=== PATIENT | female | born 1955 | race Caucasian/White ===

== ENCOUNTER → 2022-05-27 11:53 | Outpatient (CLI) | payer MEDICARE, SELFPAY ==
[2022-05-27 12:47] LABS: Add Manual Diff / Slide Review NO; Basophils Absolute Auto 100 /uL (0-100); Basophils Percent Auto 1.3 % (0-2); Eosinophils Absolute Auto 100 /uL (0-450); Eosinophils Percent Auto 2.3 % (2-4); Hematocrit 43.4 % (36-46); Hemoglobin 14.5 g/dL (12.0-16.0); Lymphocytes Absolute Auto 1600 /uL (1100-4500); Lymphocytes Percent Auto 33.2 % (25-40); Mean Corpuscular HGB Conc 33.3 % (30-36); Mean Corpuscular Hemoglobin 28.4 PG (26-34); Mean Corpuscular Volume 85.3 fL (80-100); Monocytes Absolute Auto 300 /uL (0-900); Monocytes Percent Auto 5.5 % (3-14); Neutrophils Absolute Auto 2700 /uL (1500-7000); Neutrophils Percent Auto 57.7 % (50-75); Platelet Count 196 X10^3/uL (150-400); Red Blood Cell Count 5.09 X10^6/uL (4.0-5.2); Red Cell Distribution Width 13.1 % (11.6-14.8); White Blood Cell Count 4.8 X10^3/uL (4.5-11.0)
[2022-05-27 13:10] LABS: BUN Creatinine Ratio 13.6 (6-22); Blood Urea Nitrogen 8 mg/dL (7-17); Calcium 9.2 mg/dL (8.4-10.2); Carbon Dioxide 24 mmol/L (22-32); Chloride 100 mmol/L (98-107); Estimated Glomerular Filt Rate > 60 mL/min (>60); Glucose 199 mg/dL (80-110); HEMOLYSIS < 15 (0-50); Potassium 4.3 mmol/L (3.4-5.1); Sodium 137 mmol/L (137-145)
== END ==
PROVIDERS: Referring Provider Orthopaedic Surgery Orthopaedic Surgery of the Spine; Visit Provider Orthopaedic Surgery Orthopaedic Surgery of the Spine
DX: Z01.818 Encounter for other preprocedural examination (principal); Z01.812 Encounter for preprocedural laboratory examination
CPT/HCPCS: 36415; 80048; 85025; 93005

== ENCOUNTER → 2022-06-14 12:05 | Outpatient (CLI) | payer MEDICARE, SELFPAY ==
[2022-06-14 13:19] LABS: COVID19 -Nasal RAPID Negative (Negative)
== END ==
PROVIDERS: PCP Family Medicine; Referring Provider Orthopaedic Surgery Orthopaedic Surgery of the Spine; Visit Provider Orthopaedic Surgery Orthopaedic Surgery of the Spine
DX: Z20.822 Contact with and (suspected) exposure to COVID-19 (principal)
CPT/HCPCS: 87635; C9803

== ENCOUNTER 2022-06-17 10:31 | Inpatient (IN) | payer MEDICARE, SELFPAY ==
[2022-06-05 14:53] VITALS: BMI 38.9
[2022-06-17] VITALS (12 sets, daily range): BP systolic 120–148; BP diastolic 45–79; PULSE 60–90; RESP 15–98; TEMP 36.2–36.6; O2SAT 94–100; BMI 38.9; BMI 38.4
[2022-06-17] MEDS: LACTATED RINGERS 1,000 ML 42 ML IV ×3 (11:35→15:06)
[2022-06-17] MEDS: CEFAZOLIN 2 GM/100 ML PREMIX 100 ML IV ×2 (12:55→20:13)
--- NOTE | 2022-06-17 13:15 | SUR.OPER ---
Prone on spine table, head in foam head support, padded chest and pelvic supports, gel pad at knees, lower legs supported by pillows; nipples, genitalia and toes free of pressure, arms secured on foam padded arm boards at <90 degrees abduction. Tape over blanket at thigh secured to table. Pt positioned per direction and supervision of Dr Donnelly.
[2022-06-17] MEDS: BUPIVACAINE LIPOSOME 266 MG/20 ML VIAL INJ (13:19)
[2022-06-17] MEDS: BUPIVACAINE 0.5% W/ EPI (PF) 30 ML VIAL INJ (13:20)
--- NOTE | 2022-06-17 15:13 | DI.RAD.S_ITS ---
PROCEDURE: XR LUMBAR SPINE 2-3V INDICATIONS: L4-L5 TLIF TECHNIQUE: 2 views of the lumbar spine were acquired. COMPARISON: [facility] Outside Film, CR, XR LUMBAR SPINE 2 OR 3 VIEWS, 12/19/2021, 13:19. [facility] Outside Film, MR, MR LUMBAR SPINE WITHOUT CONTRAST, 01/09/2022, 11:22. FINDINGS: Spot fluoroscopic images demonstrate changes from posterior spinal fixation with bilateral pedicle screws and interbody rods and a disc spacer. Postsurgical changes appear to be the L4-5 level as labeled clinically, although surrounding bony landmarks are not well visualized due to limited field of view. IMPRESSION: Postsurgical changes from posterior spinal fusion presumably at the L4-5 disc space level. Approved by: Taurus José M.D. on 06/17/2022 at 15:35
--- NOTE | 2022-06-17 15:18 | PM.OP.1 ---
Operative Date/Time/Diagnoses Date of procedure: 06/17/22 Time of procedure: 13:00 Pre-op diagnosis: 1. L4-5 spondylolisthesis 2. L4-5 spinal stenosis with radiculopathy Post-op diagnosis: same Procedure & Clinicians Procedure: 1. L4-5 Postero-lateral and posterior interbody fusion 2. L4-5 interbody cage placement. 3. L4-5 decompressive laminectomy with bilateral facetecomies 4. L4-5 Posterior non-segmental instrumentation 5. [place] of bone marrow from iliac crest 6. Utilization of microsurgical technique and operating microscope Same procedure as scheduled: Yes Indications: Patient has been having chronic back pain and worsening lumbar radiculopathy. Patient failed multiple conservative management with worsening pain weakness and numbness in her lower extremity. Patient has been having difficulty performing activity of daily living. After discussing risks benefits of treatment options, patient elected proceed with surgery. Surgeon: Celine Donnelly Electrical Controls Engineer: Marquis Awad Click Yes if Unassisted: No Anesthesia Type: General Operative Notes Closure Type: primary Specimen(s): none sent Prosthetic devices, grafts, tissues, transplants, or devices: Globus revolve screws, Rise cage Estimated Blood Loss (mL): 50 Blood products transfused: none Procedure in detail: Patient was seen in the preoperative area. Risks and benefits of the surgery was discussed with the patient. Informed consent was obtained from the patient and placed in the chart. Surgical site was marked. Patient was taken to the operative room. General anesthesia was administered. Prophylactic antibiotic was given to the patient less than 30 min before the incision was made. Patient was placed into a prone position on the Farshad table. Patient's back was then prepped and draped in the sterile fashion. Time-out was performed at this time. Using AP and lateral C-arm imaging the interval between the L4-5 was identified and marked on patient's back. A 2 inch incision 2 in from midline was made on the left side first. The fascia was incised in line with skin incision. Globus MARS retractors was placed inside the incision and docked onto the L4 lamina. Using microsurgical technique and operating microscope, a L4 laminectomy and L4-5 facetectomy was performed using a Kerrison rongeur. The disc space at L4-5 was identified. And a total diskectomy was performed at L4-5 level. The endplates were decorticated using a rasp and shaver. The total diskectomy and decortication was performed at L4-5 level in order to to accomplish a L4-5 fusion. The local bone from the laminectomy and facetectomy was saved for local bone grafting. After the total diskectomy and decortication was completed, Trifecta bone graft material was combined with local bone that was harvested earlier. At this time, a separate skin is incision was made over the iliac crest. A Jamshidi needle was inserted into the iliac crest through a separate skin incision. 5 cc of bone marrow aspiration was obtained through the separate skin incision using a Jamshidi needle from the iliac crest. The bone marrow aspiration was combined with local bone and the Trifecta bone grafting material. The bone grafting material was placed into the L4-5 interbody space along with a expandable cage. The cage was expanded to its maximum height using the torque limiting screwdriver. At this time a mirror image incision was made on the right side. The fascia was incised in line with the skin incision. Globus MARS retractor was inserted and docked onto the L4-5 posterolateral gutter. Using the power drill, posterior-lateral decortication was performed at L4-5 level until bleeding cortical bone was identified. The remaining bone grafting material was placed into the L4-5 posterior lateral gutter he order to accomplish posterolateral fusion at the L4-5 level. Using the double C-arm technique, pedicle screws were placed into the L4-5 pedicles bilaterally. This was done by placing the Jamshidi needle into the pedicles, then placing the guidewires over the Jamshidi needle, and finally placing the cannulated screws over the guidewires bilaterally. After the pedicle screws were placed, 2 titanium rods was locked into the heads of the pedicle screws using locking caps and torque limiting screwdriver. Threaded reducers were used to reduce the patient's spondylolisthesis at L4-5 level. Anatomic reduction was accomplished and maintained using the hardware placed. After all the hardware was placed, and confirmed with AP and lateral C-arm imaging, the wound was then irrigated with sterile normal saline and packed with Ray-Karsten gauze for 3 min to accomplish hemostasis. After the gauze was removed the deep fascia was closed with #1 Vicryl suture. The subcutaneous layer was closed with 2-0 Vicryl. The skin was closed with skin carrie. Patient tolerated the procedure well. There were no complications. Complications: none Post-operative Condition: stable Disposition: PACU Plan for aftercare: Admit to inpatient hospital
[2022-06-17] MEDS: fentaNYL 100 MCG/2 ML INJ IV (15:51)
[2022-06-17] MEDS: hydrOXYzine pamoate 25 MG CAPSULE PO (15:54)
[2022-06-17] MEDS: CODEINE/ACETAMINOPHEN 30/300 TABLET 1 TAB PO (16:08)
[2022-06-17] MEDS: SODIUM CHLORIDE 0.9% 1,000 ML 100 ML IV (16:58)
[2022-06-17] MEDS: ONDANSETRON 4 MG/2 ML INJ IV ×2 (17:01→21:16)
[2022-06-17] MEDS: HYDROMORPHONE 0.5 MG INJ IV (17:14)
[2022-06-17] MEDS: MAG HYDROX/ALUM/SIMETH 30 ML UDC PO (20:11)
[2022-06-17] MEDS: METFORMIN HCL 500 MG TABLET 1000 MG PO (20:12)
[2022-06-17] MEDS: ACETAMINOPHEN 325 MG TABLET 650 MG PO (20:12)
[2022-06-17] MEDS: dilTIAZem CD 240 MG CAP PO (20:16)
[2022-06-18] MEDS: HYDROMORPHONE 0.5 MG INJ IV ×2 (00:11→03:20)
[2022-06-18 02:22] VITALS: BP 144/68; PULSE 101; RESP 18; TEMP 36.8; O2SAT 97
[2022-06-18 03:19] VITALS: TEMP 37.7
[2022-06-18] MEDS: ACETAMINOPHEN 325 MG TABLET 650 MG PO ×3 (03:19→12:38)
[2022-06-18] MEDS: ONDANSETRON 4 MG/2 ML INJ IV (03:19)
[2022-06-18] MEDS: hydrOXYzine pamoate 25 MG CAPSULE PO (03:19)
[2022-06-18] MEDS: CEFAZOLIN 2 GM/100 ML PREMIX 100 ML IV (04:52)
--- NOTE | 2022-06-18 07:45 | P.DS_ITS ---
History of Present Illness History of Present Illness Date Patient Seen: 06/18/22 Time Patient Seen: 07:45 Chief complaint: INPT Narrative: Patient is complaining of severe low back pain this morning, she acknowledges that she is waited too long between pain medications. She notes her left leg radicular symptoms are resolving. She is also complaining of nausea and vomiting, notes that the Zofran has helped. She is feeling okay and is hoping to go home today. Discharge Providers Provider Date of admission: 06/17/22 10:31 Discharge Date: 06/18/22 Primary care physician: Carlos Sabillon MD Consults: 06/17/22 16:20 Consult to Occupational Therapy Evaluate & Treat Comment: Physician Instructions: Evaluate and treat Consult to Physical Therapy Evaluate & Treat Comment: Physician Instructions: Evaluate and Treat Discharge provider: Lacey Avila PA-C Summary Hospital Course Discharge Diagnosis: 1. L4-5 spondylolisthesis 2. L4-5 spinal stenosis with radiculopathy Hospital Course: Operative Date/Time/Diagnoses Date of procedure: 06/17/22 Time of procedure: 13:00 Procedure & Clinicians Procedure: 1. L4-5 Postero-lateral and posterior interbody fusion 2. L4-5 interbody cage placement. 3. L4-5 decompressive laminectomy with bilateral facetecomies 4. L4-5 Posterior non-segmental instrumentation 5. [place] of bone marrow from iliac crest 6. Utilization of microsurgical technique and operating microscope Same procedure as scheduled: Yes Indications: Patient has been having chronic back pain and worsening lumbar radiculopathy. Patient failed multiple conservative management with worsening pain weakness and numbness in her lower extremity.? Patient has been having difficulty performing activity of daily living.? After discussing risks benefits of treatment options, patient elected proceed with surgery. Surgeon: Celine Donnelly Cement Mason Highways [employer] Streets: Marquis Awad Click Yes if Unassisted: No Anesthesia Type: General Operative Notes Closure Type: primary Specimen(s): none sent Prosthetic devices, grafts, tissues, transplants, or devices: Globus revolve screws, Rise cage Estimated Blood Loss (mL): 50 Blood products transfused: none Status at Discharge Cognitive/behavioral status at discharge: at baseline, oriented Functional status at discharge: uses cane/walker Overall status at discharge: patient is progressing back to baseline Exam Vital Signs (past 8 hours): - 06/18/22 02:22 06/18/22 03:19 Temperature 98.3 F 99.9 F H Pulse Rate 101 H Respiratory Rate 18 Blood Pressure 144/68 H Pulse Oximetry 97 Oxygen Flow Rate 0 Oxygen Delivery Method Room Air Oxygen Flow Rate 0 Narrative Exam Narrative: Pleasant 66-year-old female, resting comfortably in bed, no acute distress. Lumbar dressings are clean, dry, intact. No surrounding erythema, induration, ecchymosis. Bilateral lower extremity: Motor functions are grossly intact, sensation is grossly intact to light touch, calves are soft and nontender to palpation. FOR[facility]LY [facility], [facility] Medical History Acid reflux Afib Diabetes HLD (hyperlipidemia) HTN (hypertension) Spinal stenosis Surgical History History of hysterectomy Hx of dilation and curettage Hx of tonsillectomy Social History household members: spouse Smoking Status: Never smoker alcohol intake: current Discharge Assessment & Plan Assessment and Plan Assessment: -stable status post L4-5 TLIF Plan of Treatment: -mobilize with PT/OT. Weightbearing as tolerated with front wheel walker or cane. No bending, lifting, twisting x6 weeks -continue with multimodal pain management. We will change Tylenol to scheduled and discouraged IV Dilaudid. -glucose metabolism pathway activated: Should have glucose checks ACHS, q.h.s. -DC home today if cleared by PT/OT and pain is manageable Discharge Plan Discharge Plan Patient Disposition: Home Discharge orders & Medications Prescriptions: New acetaminophen 500 mg capsule 1,000 mg PO Q8HR MDD Max 3000 mg per day PRN (Reason: fever or pain) Qty: 90 0RF docusate sodium 100 mg Capsule 100 mg PO BID PRN (Reason: Constipation from narcotic pain meds) Qty: 20 0RF hydroxyzine pamoate 25 mg Capsule 25 mg PO Q4HR PRN (Reason: Muscle spasm/pain/nausea) Qty: 40 0RF oxycodone 5 mg Tablet See Rx Instructions .ROUTE .COMPLEX PRN (Reason: Pain, Severe (7-10)) Qty: 42 0RF Rx Instructions: Take 1-2 tablets by mouth every 4 hours as needed for moderate to severe postop pain ondansetron 4 mg tablet,disintegrating 4 mg PO Q6H PRN (Reason: nausea and vomiting) Qty: 20 0RF Continued aspirin 325 mg Tablet 325 mg PO DAILY metformin 1,000 mg Tablet 1,000 mg PO BID diltiazem HCl 240 mg Tablet Extended Release 24 Hr 240 mg PO BID Discontinued acetaminophen-codeine 300-30 mg Tablet 2 tab PO BID PRN (Reason: Pain) Follow up/Referrals: Carlos Sabillon MD [Primary Care Provider] - Celine Donnelly MD [Physician] - As previously scheduled (10-14 days for postoperative visit) Diet/Activity/Treatments Diet: Carb-consistent/Diabetic Other treatments: Medications: -OTC Tylenol 500 mg 1 tablet every 4 hours as needed for pain/fever. Max 6 tablets per day. -Oxycodone 5 mg take 1-2 tablets every 4 hours as needed for moderate-severe pain (narcotic pain medication). -As needed medications: -Ducolax and /or MiraLax as needed for constipation from narcotic pain medications. -Pepcid AC as needed for stomach upset. -Vistaril (hydroxyine) 25mg 1 tab every 4 hours as needed for spasms/pain/nausea. Dressing/Wound care: -Keep dressing in place until postoperative follow-up office visit. -Okay to shower. Keep wound out of direct water stream. Can use PressNSeal plastic wrap to protect from shower stream. No soaking or submerging until all the scabs fall off (approximately 6 weeks). -Please call the office if dressing becomes wet, soiled, or saturated. Activities: -Limit bending, lifting, twisting x6 weeks. No deep bending (more than 90 degr ees) or twisting at the waist. No lifting > 20 pounds. -Walk frequently. -Weight-bearing as tolerated. Use front wheeled walker, and progress to cane when safe. -Continue with home exercises as directed by your physical therapist. -Ice your incision as needed for pain/inflammation/swelling. Protect your skin with a folded pillowcase. -Incentive Spirometer (breathing device from hospital): 5-10xs every hour while awake for the first 1-2 weeks. Follow-up: -Follow-up with your surgeon or PA in the office in 10-14 days after surgery. -Follow-up with your surgeon 6 weeks postoperatively. Call the office if you have chest pain, shortness of breath, significant swelling that will not resolve with elevating, fever over 101?, significantly worsening pain, or are concerned you might need to go to the Emergency Room. [facility]: [phone] Skin/Wound/Dressing Care Report to your healthcare provider any signs of infection, such as:: chills, fever, night sweats, unusual drainage and unusual redness Visit Report/Discharge Packet Instructions: DI for Prescription Opioid Use, DI for Transforaminal Lumbar Interbody Fusion Stand Alone Forms: Patient Portal/API, Stroke Signs & Symptoms, Surgery Discharge Discharge Data Primary Care Provider: Carlos Sabillon [facility] Deep Vein Thrombosis/Pulmonary Embolism Present on Admission: No
[2022-06-18] MEDS: OXYCODONE IR 5 MG TABLET 10 MG PO (08:04)
[2022-06-18] MEDS: METFORMIN HCL 500 MG TABLET 1000 MG PO (08:05)
[2022-06-18 08:06] VITALS: BP 155/70; PULSE 80; RESP 22; TEMP 36.8; O2SAT 97
[2022-06-18] MEDS: DOCUSATE 100 MG CAPSULE PO (08:06)
[2022-06-18] MEDS: dilTIAZem CD 240 MG CAP PO (08:06)
[2022-06-18] MEDS: ASPIRIN 325 MG TABLET PO (08:06)
[2022-06-18 08:32] LABS: Hematocrit 38.9 % (36-46); Hemoglobin 12.9 g/dL (12.0-16.0)
--- NOTE | 2022-06-18 09:00 | OT.IP.EVAL ---
Current Diagnoses Other spondylosis with radiculopathy, lumbar region (06/17/22) Spinal stenosis, lumbar region with neurogenic claudication (06/17/22) Surgery Performed Operation Date: 06/17/22 12:45 Actual Procedures p L4-5 TLIF(Not Applicable) - Celine Donnelly MD Past Medical History (Last Reviewed 06/18/22 @ 07:47 by Lacey Avila PA-C) Acid reflux Afib Diabetes HLD (hyperlipidemia) HTN (hypertension) Spinal stenosis Surgical History (Last Reviewed 06/18/22 @ 07:47 by Lacey Avila PA-C) History of hysterectomy Hx of dilation and curettage Hx of tonsillectomy Occupational Therapy Inpatient Evaluation/Re-Eval M1 PT/OT-IP Prior Functional Status Start: 06/18/22 10:58 Freq: NEEDED Status: Active Protocol: Document 06/18/22 09:00 [facility] (Rec: 06/18/22 11:18 [facility] [id number]) Medical Review Prior Functional Status Communication independent Mobility and Gait Pt uses walking stick to negotiate steps and for outside. Activities of Daily Living and IADL's Increased time for ADL needs due to pain. Social History Household Members spouse Living Arrangements House Number of Floors (Floors) One Floor Number of Stairs To Enter/Railing? 2 steps with chair link fence on the right to hold onto. Home Environment High Toilet,Walk in Shower,Tub /Shower Home Equipment Front Wheel Walker,Hand Held Shower,Long Handled Shoe Horn, Retail Merchandiser Technician Additional Social History Comment Pt has a built in seat in the walk in shower. Recliner that was raised up if having to sleep there. Pt has walking stick. Pt's spouse and daughter who lives a block away is able to come and stay with her if needed. M2 OT-IP Current Condition Start: 06/18/22 10:58 Freq: Status: Active Protocol: Document 06/18/22 09:00 [facility] (Rec: 06/18/22 11:18 [facility] [id number]) Occupational Therapy Current Condition Current Condition Evaluation Date 06/18/22 Treatment Diagnosis S/p L4-5 TLIF Diagnosis Onset Date 06/17/22 Post Operative Precautions Lumbar Precautions Log Roll,No Twisting,Limit Bending,Lifting Restriction of 10 lbs,Gait Belt above Incisional Area M3 OT- IP Subjective and Pain Start: 06/18/22 10:58 Freq: Status: Active Protocol: Document 06/18/22 09:00 [facility] (Rec: 06/18/22 11:18 [facility] [id number]) OT- Subjective Occupational Therapy Visit Type Type Initial Evaluation Visit Start Time 09:00 Visit Stop Time 10:00 Total Visit Minutes 60 Occupational Therapy Visit Comments Patient Comments Pt wanting to get up. Patient/Caregiver Goals TO go home. OT Pain Assessment Pain When Pain Assessed At Rest Pain Present Pain Present Pain Reported Location back Intensity 4 Scale Used Numeric (0 - 10) M4 OT- IP ADL's Start: 06/18/22 10:58 Freq: Status: Active Protocol: Document 06/18/22 09:00 [facility] (Rec: 06/18/22 11:18 [facility] [id number]) OT EPS-[place]uz-[place] Comments OT Self-Feeding Comments Not at meal time. OT ADL-Grooming General Evaluation Grooming Ability Independent Areas Needing Assistance Retrieving/Set-up of Grooming Items Comments OT Grooming Comments Pt able to do while standing with FWW in front of her at the sink. OT ADL-Oral Care General Eval Oral Care Ability Independent Areas of Assistance Retrieving/Set-Up of Items Comments Oral Care Comments Initial education to spit into a cup to best follow her back precautions. OT ADL-Dressing General Eval Upper Body Dressing Ability Independent Lower Body Dressing Ability Minimal Assistance,Moderate Assistance Areas Needing Assistance Underpants/Brief,Pants/Shorts, Shoes Comments OT Dressing Comments Pt needing assist to help push her heels into the shoes. In addition pt needed assist to help reach her pants that slipped down to the ankle. Educated to her to try to pull them up high before standing up. OT ADL-Toileting General Evaluation Toileting Ability Contact Guard Assistance Areas Needing Assistance Manage Clothing Comments OT Toileting Comments Pt able to reach appropriately for hygiene needs and mainly assist to help pull up brief in the back. Pt states to wear pull ups at night as having to use the bathroom often. OT ADL-Bathing Comments OT Bathing Comments Not performed. Pt states the built in seat in the shower is high enough to use. M5 OT- IP IADL's Start: 06/18/22 10:58 Freq: Status: Active Protocol: Document 06/18/22 09:00 [facility] (Rec: 06/18/22 11:18 [facility] [id number]) OT-Instrumental Activities of Daily Living Deficits IADL Deficits Identified Deficits Home Safety Awareness Awareness of Need for Assistance at Home Good Awareness Ability to Problem Solve Emergency Able to Problem Solve Situations Medication Management Medication Management Comments Pt's daughter to provide assist as needed in addition to her . Money Management Money Management Comments Pt's daughter to provide assist as needed in addition to her . Meal Preparation Meal Preparation Caregiver Provides Assist Digital Pre Press Operator Digital Pre Press Operator Caregiver Provides Assist M6 OT- IP Functional Cognition Start: 06/18/22 10:58 Freq: Status: Active Protocol: Document 06/18/22 09:00 [facility] (Rec: 06/18/22 11:18 [facility] [id number]) Cognitive Factors Limiting Selfcare Function Cognitive Ability Level of Alertness Alert,Drowsy Patient Orientation Name,Place,Situation Attention Span Ability Capable of Focused Attention, Capable of Sustained Attention Ability to Follow Commands Able to Follow One Step Commands Safety Awareness No Deficits Noted Cognitive Comments Cognitive Assessment Comments Pt able to follow commands well, recall and incorporate her back precautions for ADl and mobility needs with good safety. OT- Vision and Hearing OT- Hearing Assessment OT- Hearing Assessment WFL OT- Vision Assessment Visual Acuity Glasses For Reading M7 OT- IP Mobility and Balance Start: 06/18/22 10:58 Freq: Status: Active Protocol: Document 06/18/22 09:00 [facility] (Rec: 06/18/22 11:18 [facility] [id number]) OT- Bed Mobility Assessment Supine to Sit Supine to Sit Assist Standby Assistance Sit to Supine Sit to Supine Assist Standby Assistance Scooting Scooting to Edge of Bed Standby Assistance OT-Transfer Assessment Sit to and From Stand Sit to and from Stand Standby Assistance,Contact Guard Assistance Transfers Transfer Ability Standby Assistance Technique Transfer Destination Bed,Chair,Toilet Transfer Technique Stand Step Pivot Devices Transfer Assistive Devices Gait Belt,Front Wheeled Walker Comments Mobility Comments Pt SBA for all mobility needs today with good safety. Pt needing initial training to push up from surfaces when coming to stand. CGA assist needed when coming up from lower surfaces. BP Supine 138/52, sitting 133/ 53, standing 139/52 and after grooming and use of the toilet dropped to 86/38, nursing notified. Supine in recliner 100/43 and 114/52, sitting in recliner with legs up 103/43, 124/40, 120/48, and in recliner with legs down 114/46 . OT- Gait Assessment Comments Gait Ability Comments close SBA with FWW OT- Balance Assessment Sitting Balance and Reactions Static Sitting Balance Ability Normal Dynamic Sitting Balance Ability Good Standing Balance and Reactions Static Standing Balance Ability Good Dynamic Standing Balance Ability Fair M8 OT- IP Objective Assessments Start: 06/18/22 10:58 Freq: Status: Active Protocol: Document 06/18/22 09:00 [facility] (Rec: 06/18/22 11:18 [facility] [id number]) OT-Muscle Tone Assessment Muscle Tone WNL Yes M9 OT- IP Assessment and Plan Start: 06/18/22 10:58 Freq: Status: Active Protocol: Document 06/18/22 09:00 [facility] (Rec: 06/18/22 11:18 [facility] [id number]) OT Summary Assessment and Plan Potential Rehabilitation Potential Excellent Analytic Complexity at Evaluation Low Summary OT Impairments Balance,Functional Mobility, Bathing,Activity Tolerance Progress Towards Goals Progressing Toward Goals,Slow Progress due to Medical Issues Assessment Summary Pt low complexity and main barriers are low BP after use of the toilet and dropped to 86/38 after initially having BP 139/52 while standing. Pt has good understanding and able to show good safety and able to incorporate her back precautions well for all ADL and mobility needs. Pt has good family support of and daughter at home and to go home when medically stable. Goals Dressing Goal Independent Toileting Goal Independent Bathing Goal Standby Assistance Toilet Transfer Goal Independent Shower Transfer Goal Standby Assistance Days to Meet Goals 1 Frequency of Treatment Frequency Of Treatment Once a Day Treatment Plan OT Treatment Plan ADL Training,Functional Cognition Training,Functional Mobility,Patient/Family Education,Discharge Planning Other Treatment Recommendations and Next shower if still here Treatment Focus Discharge Recommendations OT Discharge Recommendations Home with Assistance Transportation Needs at Discharge Private Vehicle
--- NOTE | 2022-06-18 10:06 | PT.IIE ---
Current Diagnoses Other spondylosis with radiculopathy, lumbar region (06/17/22) Spinal stenosis, lumbar region with neurogenic claudication (06/17/22) Surgery Performed Operation Date: 06/17/22 12:45 Actual Procedures p L4-5 TLIF(Not Applicable) - Celine Donnelly MD Surgical History (Last Reviewed 06/18/22 @ 07:47 by Lacey Avila PA-C) History of hysterectomy Hx of dilation and curettage Hx of tonsillectomy Medical History (Last Reviewed 06/18/22 @ 07:47 by Lacey Avila PA-C) Acid reflux Afib Diabetes HLD (hyperlipidemia) HTN (hypertension) Spinal stenosis Physical Therapy Inpatient Evaluation/Re-Eval M1 PT/OT-IP Prior Functional Status Start: 06/18/22 12:35 Freq: NEEDED Status: Active Protocol: Document 06/18/22 10:06 AB (Rec: 06/18/22 12:55 AB [id number]) Medical Review Prior Functional Status Medical History Reviewed Yes Communication able to make needs known Mobility and Gait pt stated that she is independent with all mobilities and ambulation without AD; occasionally uses 2 walking sticks for outdoor mobility especially for stair climbing to get into the house Activities of Daily Living and IADL's Increased time for ADL needs due to pain. Social History Household Members spouse Living Arrangements House Number of Floors (Floors) Two Floors Number of Stairs To Enter/Railing? pt stays o 1st level of the house has 1 step from the back door to enter the house has 2 steps without rails to enter from the front o the house Home Environment High Toilet,Walk in Shower,Tub /Shower,Built-In Shower Seat Home Equipment Front Wheel Walker,Hand Held Shower,Long Handled Shoe Horn, Mortgage Closing Clerk Additional Social History Comment pt has 2 walking sticks Pt's sponse will be able to assist pt but stated that her augther who lives a street away can stay with her to assist if needed M2 PT-IP Current Condition Start: 06/18/22 12:35 Freq: NEEDED Status: Active Protocol: Document 06/18/22 10:06 AB (Rec: 06/18/22 12:55 AB [email or web address]) Physical Therapy Current Condition Current Condition Evaluation Date 06/18/22 Treatment Diagnosis s/p L4-5 TLIF; difficulty in walking Onset Date 06/17/22 M3 PT-IP Subjective Start: 06/18/22 12:35 Freq: NEEDED Status: Active Protocol: Document 06/18/22 10:06 AB (Rec: 06/18/22 12:55 AB [id number]) Subjective Physical Therapy Visit Type Type Initial Evaluation Visit Start Time 10:06 Visit Stop Time 10:56 Total Visit Minutes 50 Number of [employer] Visits 0 Physical Therapy Visit Comments Patient Comments agreeable to do PT Therapy Pain Assessment Pain When Pain Assessed At Rest Pain Present Pain Present Pain Reported Location back Scale Used pain scale not stated M4 PT-IP Mobility and Gait Start: 06/18/22 12:35 Freq: NEEDED Status: Active Protocol: Document 06/18/22 10:06 AB (Rec: 06/18/22 12:55 AB [id number]) PT-Bed Mobility Assessment Rolling Type of Rolling Log Rolling Level of Assist Standby Assistance Supine to Sit Supine to Sit Standby Assistance Sit to Supine Sit to Supine Standby Assistance PT-Transfer Assessment Sit to and From Stand Sit to and from Stand Standby Assistance,1 Person Assistance,Use of Upper Extremities Equipment Transfer Assistive Device Gait Belt,Front Wheeled Walker Orthotic/Prosthetic Devices or Brace: No Transfers Transfer Destination Bed,Chair Transfer Technique ambulated Transfer Ability Level of Assist Standby Assistance,1 Person Assistance,Use of Upper Extremities Comments Mobility Comments pt sitting on the chair. able to recall back precautions. BP monitored . BP in sittin/52. completed sit to stand from the chair SBA. BP in standin/44. no c/o dizziness/ lightheadedness. pt able to stand for ~ 1-2 min and BP checked again: 115/43. pt ambulated ~ 12 ft to EOB using FWW SBA. BP checked sitting on EOB: 125/44. pt completed log roll sit<>supine SBA. BP chekced in sittin/38. pt sat for ~ 4 min. educated on stair climbing techniques using FWW or SPC while resting. BP checked again: 130/41. pt completed sit to stand from EOB SBA and ambulated towards platform step using fWW ~ 15 ft. completed up/down platform step using FWW x 2 sets SBA to CGA. completed stair climbing again using SPC CGA and cues. pt ambulated back to her room using FWW SBA. sat on chair and positioned. BP checked: 136/43. call light and table placed within reach. offered caregiver training but pt refused. pt stated that her daughter is a caregiver by profession and will be able to assist her. Gait Assessment Gait Gait Assistance Required: Standby Assistance Distance (Feet) 40 Able to Maintain Weight Bearing Status Yes During Gait Assistive Devices Assistive Device Gait Belt,Front Wheeled Walker Orthotic/Prosthetic Devices or Brace: No Gait Deviations General Gait Pattern Decreased Stride Length, Decreased Feet Clearance Factors Limiting Gait Function Factors Limiting Gait Function Decreased Activity Tolerance, Decreased Strength,Limited Range of Motion,Pain,Poor Balance Stair Climbing Assessment Evaluation Level of Assist On Stairs Standby Assistance,Contact Guard Assistance Devices Stair Climbing Assistive Devices Straight Cane,Front Wheel Walker Technique/Endurance Stair Climbing Direction Ascend and Descend Stair Climbing Technique Step to Step Number of Steps Climbed 1 Query Text: Stair Climbing Set # Repetitions (reps) 4 PT-Balance Assessment Sitting Balance and Reactions Static Sitting Balance Ability Normal Dynamic Sitting Balance Ability Normal Standing Balance and Reactions Static Standing Balance Ability Good Dynamic Standing Balance Ability Fair Device Used FWW M5 PT-IP Objective Assessments Start: 06/18/22 12:35 Freq: NEEDED Status: Active Protocol: Document 06/18/22 10:06 AB (Rec: 06/18/22 12:55 AB [email or web address]) Orientation Orientation/Cognition Level of Alertness Alert Orientation Name Language Function Ability No Deficits Noted Safety Awareness Understands Safety Issues Gross Range of Motion Lower Extremity ROM Assessment Within Functional Limits Strength Lower Extremity Strength Hip 4-/5 Knee 4-/5 Sensation Assessment Sensation Gross Sensation WNL Muscle Tone Muscle Tone WNL Yes M6 PT-IP Treatment Start: 06/18/22 12:35 Freq: NEEDED Status: Active Protocol: Document 06/18/22 10:06 AB (Rec: 06/18/22 12:55 AB [id number]) Physical Therapy Treatment Education Education Provided Precautions,Weight Bearing Status,Safety M7 PT-IP Assessment and Plan Start: 06/18/22 12:35 Freq: NEEDED Status: Active Protocol: Document 06/18/22 10:06 AB (Rec: 06/18/22 12:55 AB [id number]) PT Summary Assessment and Plan Potential Rehabilitation Potential Good Status of Condition at Evaluation Stable Summary Impairments Pain,ROM,Strength,Balance, Coordination,Sensation,Tone, Cognition,Bed Mobility, Transfers,Gait,Activity Tolerance Assessment Summary pt requiring SBA to CGA with mobility and will have her family to assist her at home. pt plans to go home today. pt may go home when medically stable. Goals Bed Mobility Goal Independent Transfer Goal Independent,Front Wheeled Walker Gait Goal Independent,Front Wheel Walker Gait Distance 200 Other Goals up/down 2 steps using walking sticks mod I Days to Meet Goals 5 Frequency of Treatment Frequency Of Treatment Twice a Day Treatment Plan Physical Therapy Treatment Plan Bed Mobility Training,Transfer Training,Gait Training, Therapeutic Exercise,Balance Retraining,Post Op Education, Discharge Planning,Hot or Cold Pack,Neuromuscular Re-ed, Coordination Retraining,Manual Therapy Precautions Lumbar Precautions Log Roll,No Twisting,Limit Bending,Lifting Restriction of 10 lbs,Gait Belt above Incisional Area Recommendations To Nursing Amount of Assist Needed Standby Assistance Discharge Recommendations PT Discharge Recommendations Home with Assistance Transportation Needs at Discharge Private Vehicle
--- NOTE | 2022-06-18 13:22 | CM.DANOTE ---
Patient is a 66 yo female who was admitted on 06/17/22 for TLIF. Pt has MCR for insurance and her PCP is Dr. Carlos Sabillon. EMR was reviewed. Per Ortho PA, pt medically stable to d/c pending PT/OT eval today. Per PT/OT, pt cleared with ambulation for d/c to home and had family bedside for CG training and only concern was bp issues. Per RN, pt's bp seemed to clear with better pain management and improved. SW met bedside with pt and spouse and adult dtr and they confirm they live at home in [place] and pt active and independent at baseline, does not typically use DME and drives. Pt denies any hx of HH or SNF and only used outpt PT once a few years ago. No concerns with d/c to home today and family confirms they can provide assist at home. Plan: Patient to d/c home today via family POV and outpt f/u with Ortho. No further SW needs at this time. MARSHALL Peacock Discharge Planning/Care Management CM Discharge Assessment Start: 06/18/22 13:19 Freq: Status: Active Protocol: Document 06/18/22 13:19 BF (Rec: 06/18/22 13:22 BF [id number]) Discharge Planning Assessment Assigned Fretted Instruments Inspector MARSHALL Rivera Advance Directives? No Advance Directives on File No History Provided By Patient,Family Member, Significant Other,Medical Record Has Patient been admitted in last 30 No days? Prior Living Arrangements House Household Members spouse Type of transporation used prior to Drives own vehicle admit Independent with ADL's Yes Is patient alert and oriented? Yes Caregiver for Another No DME Already Rented / Owned FWW / Walker Barriers to Discharge No Discharge Plan Home Community Services Physical Therapy Transportation Arrangement spouse and dtr bedside to provide transport Referrals Initiated None needed Whiteboard Updated in Patient Room with Yes name and ext. # of Fretted Instruments Inspector Review Status In Process Please Provide Date Initial DC 06/18/22 Assessment Was Performed Next Review Type Continued Stay Review Pre-Anesthesia Assessment Start: 06/04/22 12:45 Freq: Status: Complete Protocol: Document 06/05/22 14:53 CAB (Rec: 06/04/22 13:36 CAB [id number]) Pre-Anesthesia Assessment Patient Information Reviewed Via Phone Assessment Assessment Completed With Patient Diagnostic Results BMP/CMP,CBC Comment Labs/ECG @ 05/27/22, COVID screen @ 06/14/22 Primary Care Provider Carlos Sabillon Seen Specialist in Last 12 Months Yes Specialist Seen Orthopedist Primary Language Cymro Acidizer Helper Required No Height 167.64 cm Weight 109.316 kg Body Mass Index (BMI) 38.9 Hearing Ability Normal Visual Assist Magnifying Glass Dentition Type Teeth, Natural Present,Dental Implants Barriers to Learning None Hx Anesthesia Reactions Yes: Trouble waking up, not sure if morphine causes nausea Hx Family Anesthesia Reaction Yes: Sister has trouble with anesthesia Hx Malignant Hyperthermia No Hx Blood Transfusions No Anesthesia Review Requested No alcohol intake current alcohol intake frequency holidays/special occasions only Smoking Status Never smoker Substance Use Type does not use Pain Present Pain Reported Musculoskeletal Symptoms Abnormal Gait,Back Pain, Difficulty Walking,Joint Pain, Numbness,Radiating Pain into Limb History of Falling (Recent or History of Yes ) Patient is completely paralyzed or No completely immobile Mental Status Oriented to own ability Is patient on oxygen? No Does patient have FARRELL/SOB No Hx Sleep Apnea No Currently Taking a Beta Re No Can You Climb a Flight of Stairs Without Yes SOB Hx Chest Pain No Hx SOB No Hx Syncope or Dizziness No Anti-Coagulant Therapy Yes: ASA 325mg-pt will check with cardiology if to hold or continue Has a Manager Of Sales Yes: [facility]-last visit Manager Of Sales name Dr. Moseley Cardiac Testing No: Echo & Stress @ [facility] records scanned Hx Pacemaker/ICD No Pacemaker Rep Required? No Comment Cardiac records scanned Diet Type At Home Regular Dysphagia No Gastrointestinal Symptoms Diarrhea,Reflux Bladder Pattern Nocturia,Urgency Urinary Catheter Present No Hx Urinary Self Catheterization No Diabetes Yes: Pt checks blood sugar only twice a week Patient No Lactating No Hx Drug Resistant Organism No Presence of External or Internal Medical Yes Devices Have you had any close contact with No someone diagnosed with COVID-19? Received a COVID vaccine? No Marital Status Lives With spouse Current Living Arrangements House Number of Floors (Floors) Two Floors Support System Child/Children,Spouse Does the Patient Have Assistance After Yes Surgery Patient Discharge Plan Description Return Home Comment Pt not advised on length of stay per surgeon Feels Safe in Current Environment Yes Been Physically Hurt or Threatened By a No Person in Current Environment Do you have thoughts of harming yourself None or others? Are you currently considering suicide? No Do you have a plan to hurt yourself or No Plan others? Do You Have Any Spiritual Beliefs That No May Affect Your HC Choices? Do You Have Any Cultural Practices That No May Affect Your HC Choices? Who Can We Speak to About Patient's Care Family, friends Identifying Code for Release of Patient Declines to issue Information Health Care Proxy/Next of Kin Hailey (daughter) Neptali ( ) Health Care Proxy Phone Number Hailey: [phone] Neptali: [phone] Emergency Contact Name Hailey (daughter) Neptali ( ) Emergency Contact Phone Number Hailey: [phone] Neptali: [phone] Advance Directives? No Power of Grain Commodity Manager No PAC Instructions Diabetes instructions,Durable medical equipment,Medications to take/avoid,Nasal antibiotic ,No ETOH/petroleum product on skin DOS,NPO,Pre-surgical wash ,Sensory aids,Sturdy shoes/ comfortable clothes,Do not bring valuables and remove jewelry
--- NOTE | 2022-06-18 14:20 | PC.NURSE ---
Pt is dressed and ready for discharge home with family. IV has been removed. DSG to back changed to [place]. Went over d/c instructions with Pt and family-discussed d/c meds, time of last dose, reviewed stroke education, reminded Pt not to drive or operate machinery while taking narcotics, reminded Pt to not exceed 3000mg of Acetaminophen in 24hrs, encouraged Pt to drink plenty of fluids to prevent constipation or dehydration, to follow back precautions, s/s of infection and when to call MD and follow up. Pt denied further questions and was taken out via w/c by HOSPITALIST PHYSICIAN to POV with family and all belongings.
== END 2022-06-18 14:24 | disposition home or self-care (01) | DRG 455 ==
PROVIDERS: Physician Assistant; Admitting Provider Orthopaedic Surgery Orthopaedic Surgery of the Spine; PCP Family Medicine; Referring Provider Orthopaedic Surgery Orthopaedic Surgery of the Spine; Visit Provider Orthopaedic Surgery Orthopaedic Surgery of the Spine
PROC: 0SG00AJ Fusion of Lumbar Vertebral Joint with Interbody Fusion Device, Posterior Approach, Anterior Column, Open Approach (ICD-10-PCS; principal; 2022-06-17 12:45)
DX: M48.061 Spinal stenosis, lumbar region without neurogenic claudication (principal); M54.16 Radiculopathy, lumbar region; M43.16 Spondylolisthesis, lumbar region; E11.9 Type 2 diabetes mellitus without complications; I10 Essential (primary) hypertension; E78.5 Hyperlipidemia, unspecified; Z79.84 Long term (current) use of oral hypoglycemic drugs; Z20.822 Contact with and (suspected) exposure to COVID-19
CPT/HCPCS: 36415; 72100; 76000; 82962; 85014; 85018; 87635; 97116; 97161; 97165; 97530; 97535; C9803; C1713; C9290; J0330; J0690; J1170; J2250; J2405; J2704; J3010

== ENCOUNTER → 2024-11-26 12:25 | Outpatient (CLI) | payer MEDICARE, SELFPAY ==
[2022-06-17 20:01] VITALS: BMI 38.4
--- NOTE | 2024-11-26 12:27 | DI.MRI.S_ITS ---
PROCEDURE: MR LUMBAR SPINE WO CON INDICATIONS: Left LE Radic s/p fusion TECHNIQUE: Noncontrast sagittal T1 spin echo and T2 fast echo, sagittal STIR, and T2 fast spin echo through the lumbar spine. In cases with scoliosis, additional coronal T2 fast spin echo may be performed. COMPARISON: [facility] Outside Film, MR, MR LUMBAR SPINE WITHOUT CONTRAST, 01/09/2022, 11:22. [facility], RF, LUMBAR TRANSFORAMINAL MARIA DE JESUS, 03/25/2022, 13:17. FINDINGS: Image quality: Excellent. Alignment and Curvature: There is normal bony alignment. Posterior and interbody surgical fusion at L4-5. Bone Marrow: Marrow is of normal overall signal. No acute vertebral body compression fractures. Spinal Cord: Conus medullaris terminates at the L1 level. Visualized cord demonstrates normal signal and size. Paraspinous Soft Tissues: No paravertebral masses. T12-L1: Central disc protrusion with broad-based disc bulge and small facet effusions. L1-L2: Broad-based disc bulge, facet effusions and ligamentum flavum hypertrophy. L2-L3: Broad-based disc bulge, facet effusions and ligamentum flavum hypertrophy. Mild left neural foraminal narrowing. L3-L4: Facet effusions and ligamentum flavum hypertrophy. No spinal canal narrowing. Mild left neural foraminal narrowing. L4-L5: Laminectomy. No spinal canal or neural foraminal narrowing. L5-S1: Normal appearance. IMPRESSION: Posterior and interbody surgical fusion at L4-5, with no significant spinal canal narrowing at this level. Multilevel degenerative disc disease and facet arthrosis. Of note, there is mild left neural foraminal narrowing at L2-3 and L3-4. No significant spinal canal narrowing. Dictated by: Kwaku Guevara M.D. on 11/26/2024 at 20:51 Approved by: Kwaku Guevara M.D. on 11/26/2024 at 21:01
== END ==
LOC: MRI 12:26
PROVIDERS: PCP Family Medicine; Referring Provider Physical Medicine & Rehabilitation; Visit Provider Physical Medicine & Rehabilitation
DX: M51.16 Intervertebral disc disorders with radiculopathy, lumbar region (principal); M47.26 Other spondylosis with radiculopathy, lumbar region; M48.061 Spinal stenosis, lumbar region without neurogenic claudication; Z98.1 Arthrodesis status
CPT/HCPCS: 72148